=== PATIENT | female | born 1940 | race African-American/Black ===

== ENCOUNTER 2017-06-18 14:11 | Day surgery (SDC) | payer BC, OTHER ==
[2017-06-18] MEDS ORDERED: LIDOCAINE 1%/EPI 1:100000 (20 ML MULTI DOSE VIAL) ONE ×2 (14:52→17:17)
[2017-06-18] MEDS ORDERED: BACITRACIN 15 GM TUBE TOPICAL OINTMENT ONE (14:53)
--- NOTE | 2017-06-18 16:41 | HP ---
History & Physical Update - History History: No Change - Physical Physical: No Change - Assessment Assessment: No Change - Plan Plan: No Change Currently as noted:: Left scalp mass- for excision
[2017-06-18] MEDS ORDERED: POVIDONE-IODINE OINTMENT 10% - 28.4 GM TUBE ONE (17:17)
[2017-06-18] MEDS ORDERED: PROPOFOL 20 ML ONE (17:30)
[2017-06-18] MEDS ORDERED: ceFAZolin SODIUM 1 GM VIAL IVPB ONE (17:45)
[2017-06-18] MEDS ORDERED: ceFAZolin SODIUM 1 GM VIAL ONE ×2 (17:45)
[2017-06-18] MEDS ORDERED: SODIUM CHLORIDE 0.9% P/F 10 ML VIAL IJ ONE (17:45)
[2017-06-18] MEDS ORDERED: DEXAMETHASONE SOD PHOSPHATE 4 MG/1 ML VIAL ONE (17:47)
[2017-06-18] MEDS ORDERED: LIDOCAINE 1%/EPI 1:100000 (20 ML MULTI DOSE VIAL) IJ ONE ×2 (17:50)
--- NOTE | 2017-06-18 18:13 | OP ---
Operative Note - Note: Operative Date: 06/18/17 Pre-Operative Diagnosis: Right scalp mass Operation: excision of scalp mass- 3cm x 3cm Post-Operative Diagnosis: Same as Pre-op Surgeon: Ezequiel Giraldo Anesthesia: General, Local Specimens Removed: Right scalp mass. Culture Estimated Blood Loss (mls): 2 Operative Report Dictated: Yes
[2017-06-18] MEDS ORDERED: PROMETHAZINE HCL 25 MG/1 ML VIAL IVPUSH PRN (18:16)
[2017-06-18] MEDS ORDERED: ONDANSETRON 4 MG/2 ML VIAL IVPUSH PRN (18:16)
[2017-06-18] MEDS ORDERED: LACTATED RINGERS SOLUTION 1,000 ML IV SCH (18:30)
[2017-06-18 19:13] VITALS: TEMP 97.9
[2017-06-18 19:44] VITALS: BP 160/70; PULSE 85
--- NOTE | 2017-06-20 10:35 | OP ---
DATE OF OPERATION: 06/18/2017 PREOPERATIVE DIAGNOSIS: Right scalp mass. POSTOPERATIVE DIAGNOSIS: Right scalp mass. PROCEDURE: Excision of right scalp mass 3 cm x 3 cm in size. FINDINGS: A ruptured scalp mass with sebaceous-appearing content. SPECIMEN: Scalp mass and culture. ESTIMATED BLOOD LOSS: 2 mL. DRAIN: None. ANESTHESIA: LMA/local with epinephrine. REASON FOR PROCEDURE: This 76-year-old female presents with a left scalp mass. She stated that it is causing discomfort and it was increasing in size. Because of this, she was consented for an excision of her right scalp mass. The risks and benefits of the procedure were explained. These included bleeding, infection, recurrent of mass, wound dehiscence, [place], DVT, PE, vessel injury, nerve injury, hair loss are some of the complications. She understood and signed informed consent. DESCRIPTION OF PROCEDURE: The patient was placed supine on the operating room table. The area was prepped with Betadine in the usual sterile fashion. Time-out was performed. An incision over the scalp mass was made and the skin and subcutaneous tissue dissected. The mass was circumferentially dissected using Metzenbaum scissors. It was noted that the mass was ruptured with sebaceous-appearing content. In addition, there was purulent fluid noted. Cultures were taken. The mass was circumferentially dissected and completely excised in pieces because of its ruptured nature. Hemostasis was achieved using electrocautery after the specimen was removed. Irrigation was used to clean the wound. The wound was closed with multiple 2-0 silk sutures in a horizontal mattress fashion. Betadine ointment was placed over the wound. The patient tolerated the procedure well and was returned to the recovery room in stable condition. NANCY JACQUES M.D. [id number]
--- NOTE | 2017-06-22 16:36 | PATH ---
Surgical Pathology Report Patient Name: YARA LEIJA [facility]. Rec. #: [id number] /Age/Gender: 1940 (Age: 76) / F Account: [id number] Location: [facility] SURGICAL Taken: 06/18/2017 Received: 06/19/2017 Reported: 06/22/2017 Physicians: Ezequiel Giraldo M.D. Specimen(s) Received RIGHT SCALP MASS Clinical History Right scalp mass Final Diagnosis SCALP, RIGHT, MASS, EXCISION: PILAR CYST. Electronically Signed Shanelle Nuñez M.D. Gross Description Received in formalin labeled "right scalp mass," is a 1.5 x 1.4 x 0.7 cm disrupted cyst and cyst contents. Boat Motor Mechanic sections are submitted in one cassette. 06/19/201706/19/2017
== END 2017-06-18 19:52 | disposition home or self-care (01) ==
LOC: JASU-SURG 14:11
PROVIDERS: ATTEND Surgery
PROC: 0JB00ZZ Excision of Scalp Subcutaneous Tissue and Fascia, Open Approach (ICD-10-PCS; principal; 2017-06-18 14:00)
DX: L72.11 Pilar cyst (principal)
CPT/HCPCS: 87070; 87205; 88307-TC; 94760

== ENCOUNTER 2018-06-19 16:15 | Inpatient (IN) | payer BC, OTHER ==
[2018-06-19 16:23] VITALS: BMI 29.3
[2018-06-19] MEDS ORDERED: ALBUTEROL SO4 2.5/IPRATROPIUM 0.5 INH SOL 3 ML VIAL.NEB. NEB ONE ×2 (16:52→17:10)
--- NOTE | 2018-06-19 16:57 | PDOC ---
History of Present Illness - General Chief Complaint: Respiratory Stated Complaint: DIFFICULTY BREATHING,COUGH.COLD Time Seen by Provider: 06/19/18 16:29 History Source: Patient Exam Limitations: No Limitations - History of Present Illness Initial Comments: 06/19/18 16:59 77Fwith pmh of hypertension presents to the ED with 3 days of coughing associated w/ chest pain radiating to the back tried taking tylenol and robitussin with no relief. Cough is getting worse, often feels short of breath. However it is non-productive. 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 Never diagnosed with COPD or asthma. Denies fever Past History - Past Medical History Allergies/Adverse Reactions: Allergies Allergy/AdvReac Type Severity Reaction Status Date / Time No Known Drug Allergies Allergy Verified 06/19/18 16:20 Home Medications: Ambulatory Orders Amlodipine Bes/Olmesartan Med [Amlodipine-Olmesartan 10-40 mg] 1 each PO DAILY 06/19/18 Aspirin [ASA -] 81 mg PO DAILY 06/19/18 Hydrochlorothiazide [Hctz -] 25 mg PO DAILY 06/19/18 Metoprolol Succinate [Toprol Xl] 25 mg PO DAILY 06/19/18 Anemia: No Asthma: No Cancer: No Cardiac Disorders: No CVA: No COPD: No CHF: No Dementia: No Diabetes: No GI Disorders: No Disorders: No HTN: Yes Hypercholesterolemia: No Liver Disease: No Seizures: No Thyroid Disease: No - Surgical History Appendectomy: Yes - Suicide/Smoking/Psychosocial Hx Smoking History: Never smoked Hx Alcohol Use: Yes (BEER ONCE IN A WHILE) Drug/Substance Use Hx: No Substance Use Type: None Review of Systems - Review of Systems Able to Perform ROS?: Yes Is the patient limited Israeli proficient: No Constitutional: Yes: Symptoms Reported, Chills HEENTM: Yes: Nose Congestion. No: Throat Pain Respiratory: Yes: See HPI Cardiac (ROS): Yes: See HPI ABD/GI: No: Symptoms Reported : No: Symptoms Reported Musculoskeletal: No: Symptoms Reported Integumentary: No: Symptoms Reported All Other Systems: Reviewed and Negative *Physical Exam - Vital Signs Last Vital Signs Temp Pulse Resp BP Pulse Ox 99.1 F 109 H 22 H 148/84 95 06/19/18 16:20 06/19/18 16:20 06/19/18 16:20 06/19/18 16:20 06/19/18 16:20 - Physical Exam General Appearance: Yes: Nourished, Appropriately Dressed. No: Apparent Distress HEENT: positive: EOMI, GALINDO, Normal ENT Inspection Respiratory/Chest: positive: Labored Respiration, Crackles, Rales. negative: Chest Tender, Respiratory Distress Cardiovascular: positive: Regular Rhythm, S1, S2, Tachycardia Gastrointestinal/Abdominal: positive: Normal Bowel Sounds, Flat, Soft. negative : Tender Musculoskeletal: positive: Normal Inspection. negative: CVA Tenderness Integumentary: positive: Normal Color, Dry, Warm Neurologic: positive: Fully Oriented, Alert, Normal Mood/Affect, Normal Response Moderate Sedation - Procedure Monitoring Vital Signs: Procedure Monitoring Vital Signs Temperature 99.1 F 06/19/18 16:20 Pulse Rate 109 H 06/19/18 16:20 Respiratory Rate 22 H 06/19/18 16:20 Blood Pressure 148/84 06/19/18 16:20 O2 Sat by Pulse Oximetry (%) 95 06/19/18 16:20 ED Treatment Course - LABORATORY CBC & Chemistry Diagram: 06/19/18 17:00 06/19/18 17:45 Medical Decision Making - Medical Decision Making 06/19/18 18:13 pna with viral illness vs chf vs new onset asthma Elevated WBC, with cxr showing evidence of cephalization and hazy opacities. Flu negative. UA negative for UTI. Will give treatment of Duonebs and admit to observation. *DC/Admit/Observation/Transfer Diagnosis at time of Disposition: Viral pneumonia - Discharge Dispostion Decision to Admit order: Yes - Referrals - Patient Instructions - Post Discharge Activity
--- NOTE | 2018-06-19 16:58 | PDOC ---
Attending Attestation - HPI HPI: 06/19/18 17:55 The patient is a 77-year-old female with known past medical history of HTN presents to the emergency department with a cough, shortness of breath and chest pain. The patient presents with 3 days of a nonproductive cough associated with chest pain that radiates to the back reports taking Tylenol or Robitussin, without relief. 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 The patient reports associated symptoms of chills , denies fever, headache, abdominal pain, leg pain, urinary symptoms or changes in bowel habits. Denies hx of COPD or asthma. Denies getting her flu shot this year. Allergies: NKDA Social history: Non-smoker. Surgical history: Appendectomy and excision of scalp mass PCP: Lucille Sidhu MD. - Physicial Exam PE: 06/19/18 17:32 GENERAL: The patient is in no acute distress. Awake, Alert and Oriented. Answers questions appropriately. LUNGS: Bilateral crackles, no wheezing, no tachypnea. clear to auscultation bilaterally HEART:Regular rate and rhythm, normal S1 and S2 without murmur, rub or gallop. ABDOMEN: Soft, nontender, normoactive bowel sounds. No guarding, no rebound. No masses palpable. EXTREMITIES: No lower extremity edema. Normal range of motion, no edema. No clubbing or cyanosis. No erythema, or tenderness. MUSCULOSKELETAL: Back non-tender to palpation, no CVA tenderness. - Medical Decision Making 06/19/18 17:32 Documentation prepared by Rajwinder Zamudio, acting as medical diagnostic radiographer for Racquel Walters MD. <Rajwinder Zamudio - Last Filed: 06/19/18 17:55> - Resident Resident Name: Quinn Gomez - ED Attending Attestation I have performed the following: I have examined & evaluated the patient, The case was reviewed & discussed with the resident, I agree w/resident's findings & plan, Exceptions are as noted - Medical Decision Making 06/19/18 17:52 Laboratory Tests 12/27/10 06/19/18 11:00 17:00 WBC 6.0 23.0 H Hgb 10.9 9.8 L Plt Count 217.0 328 Hct 33.9 30.2 L Pt noted to have a leukocytosis CXR - increased markings, no consolidation Awaiting influenza Will plan to give Ceftriaxone and Azithromycin <Racquel Walters - Last Filed: 06/23/18 10:01>
[2018-06-19 17:07] LABS: BASO % 0.8 % (0-2.0); EOS % 2.1 % (0-4.5); HEMATOCRIT 30.2 % (32.4-45.2); HEMOGLOBIN 9.8 GM/dL (10.7-15.3); LYMPH % 7.9 % (8-40); MCH 25.1 pg (25.7-33.7); MCHC 32.3 g/dl (32.0-36.0); MEAN CELL VOLUME 77.7 fl (80-96); MEAN PLT VOLUME 9.1 fl (7.5-11.1); MONO % 7.3 % (3.8-10.2); NEUT % 81.9 % (42.8-82.8); PLATELET COUNT 328 K/MM3 (134-434); RBC 3.88 M/mm3 (3.60-5.2)
[2018-06-19 17:40] LABS: ANISOCYTOSIS 1+; PLATELET ESTIMATE ADEQUATE; TARGET CELLS 1+
[2018-06-19 18:18] LABS: URINE APPEARANCE CLEAR; URINE COLOR AMBER; URINE GLUCOSE (UA) NEGATIVE (NEGATIVE); URINE KETONE NEGATIVE (NEGATIVE); URINE LEUK ESTERASE NEGATIVE (NEGATIVE); URINE NITRITE NEGATIVE (NEGATIVE); URINE PROTEIN 1+ (NEGATIVE); URINE UROBILINOGEN 4.0 E.U/dl mg/dL (0.2-1.0)
[2018-06-19 18:19] LABS: HCG,QUALITATIVE URINE Negative
[2018-06-19 18:20] LABS: EPI CELLS RARE /HPF (FEW); URINE MUCUS FEW
[2018-06-19] MEDS ORDERED: CEFTRIAXONE 1 GM in DEXTROSE 5%-WATER - 50 ML IVPB ONE (18:28)
[2018-06-19] MEDS ORDERED: AZITHROMYCIN IVPB 500 MG in DEXTROSE 5%-WATER - 250 ML IVPB ONE (18:28)
[2018-06-19 18:30] LABS: ALBUMIN 2.3 g/dl (3.4-5.0); ALK PHOS 134 U/L (45-117); ANION GAP 10 MMOL/L (8-16); BILIRUBIN,TOTAL 0.7 mg/dL (0.2-1); BLOOD UREA NITROGEN 18 mg/dL (7-18); CALCIUM 8.2 mg/dL (8.5-10.1); CHLORIDE 100 mmol/L (98-107); CO2 28 mmol/L (21-32); GLUCOSE,RANDOM 107 mg/dL (74-106); POTASSIUM 3.8 mmol/L (3.5-5.1); SGOT/AST 34 U/L (15-37); SGPT/ALT 19 U/L (13-61); SODIUM 138 mmol/L (136-145); TOT PROT 6.7 g/dl (6.4-8.2)
[2018-06-19] MEDS ORDERED: AZITHROMYCIN IVPB 500 MG/250 ML BAG IVPB ONE (18:32)
[2018-06-19] MEDS ORDERED: CEFTRIAXONE 1 GM/50 ML BAG ONE (18:32)
[2018-06-19] MEDS ORDERED: SODIUM CHLORIDE 500 ML IV STA (20:10)
[2018-06-19] MEDS ORDERED: ACETAMINOPHEN 325 MG TABLET (FP) PO PRN (20:10)
[2018-06-19] MEDS ORDERED: ALBUTEROL SO4 0.083% IH SOL 2.5 MG/3 ML VIAL.NEB. NEB PRN (20:10)
--- NOTE | 2018-06-19 20:17 | HP ---
CHIEF COMPLAINT: cough PCP: Dr. Broussard HISTORY OF PRESENT ILLNESS: This is a 77 year old female with a history of pulmonary embolism (treated with Coumadin, now off), hypertension, who presents to the ER with three day history of cough with white sputum production. Denies fever, sore throat, headache, rhinorrhea, chest pain, sob, sob on exertion. 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 ER course was notable for: leukocytosis of 23,000 Recent Travel: no PAST MEDICAL HISTORY: Pulmonary embolism, HTN PAST SURGICAL HISTORY: Social History: Smoking:no; but is around smoke Alcohol:no Drugs: no Family History: Allergies No Known Drug Allergies Allergy (Verified 06/19/18 16:20) HOME MEDICATIONS: Home Medications Medication Instructions Recorded Amlodipine Bes/Olmesartan Med 1 each PO DAILY 06/19/18 [Amlodipine-Olmesartan 10-40 mg] Aspirin [ASA -] 81 mg PO DAILY 06/19/18 Hydrochlorothiazide [Hctz -] 25 mg PO DAILY 06/19/18 Metoprolol Succinate [Toprol Xl] 25 mg PO DAILY 06/19/18 REVIEW OF SYSTEMS CONSTITUTIONAL: Positive: chills,generalized weakness, malaise Absent: fever, diaphoresis, , loss of appetite, weight change HEENT: Absent: rhinorrhea, nasal congestion, throat pain, throat swelling, difficulty swallowing, mouth swelling, ear pain, eye pain, visual changes CARDIOVASCULAR: Positive: peripheral edema; bilateral legs Absent: chest pain, syncope, palpitations, irregular heart rate, lightheadedness , RESPIRATORY: Positive:cough, shortness of breath, Absent: dyspnea with exertion, orthopnea, wheezing, stridor, hemoptysis GASTROINTESTINAL: Absent: abdominal pain, abdominal distension, nausea, vomiting, diarrhea, constipation, melena, hematochezia GENITOURINARY: Absent: dysuria, frequency, urgency, hesitancy, hematuria, flank pain, genital pain MUSCULOSKELETAL: Absent: myalgia, arthralgia, joint swelling, back pain, neck pain SKIN: Absent: rash, itching, pallor HEMATOLOGIC/IMMUNOLOGIC: Absent: easy bleeding, easy bruising, lymphadenopathy, frequent infections ENDOCRINE: Absent: unexplained weight gain, unexplained weight loss, heat intolerance, cold intolerance NEUROLOGIC: Absent: headache, focal weakness or paresthesias, dizziness, unsteady gait, seizure, mental status changes, bladder or bowel incontinence PSYCHIATRIC: Absent: anxiety, depression, suicidal or homicidal ideation, hallucinations. PHYSICAL EXAMINATION Vital Signs - 24 hr 06/19/18 06/19/18 06/19/18 16:20 18:22 18:55 Temperature 99.1 F 99.4 F Pulse Rate 109 H Pulse Rate [ 102 H Apical] Respiratory 22 H 22 H Rate Blood Pressure 148/84 Blood Pressure 134/78 [Left Arm] O2 Sat by Pulse 95 96 Oximetry (%) GENERAL:obese, Awake, alert, and fully oriented HEAD: Normal with no signs of trauma. NECK: Normal range of motion, supple without lymphadenopathy, JVD, or masses. LUNGS:bilateral crackles throughout lung chambers . HEART: Regular rate and rhythm, normal S1 and S2 without murmur, rub or gallop. ABDOMEN: Soft, nontender, not distended, normoactive bowel sounds, no guarding, no rebound, no masses. No hepatomegaly or splenomegaly. MUSCULOSKELETAL: Normal range of motion at all joints. No bony deformities or tenderness. No CVA tenderness. UPPER EXTREMITIES: 2+ pulses, warm, well-perfused. No cyanosis. No clubbing. No peripheral edema. LOWER EXTREMITIES: 2+ pulses, warm, well-perfused. No calf tenderness. bilateral 1+edema NEUROLOGICAL: Cranial nerves II-XII intact. Normal speech. strength 5/5 throughout upper and lower muscle groups/sensation intact throughout PSYCHIATRIC: Cooperative. Good eye contact. Appropriate mood and affect. SKIN: Warm, dry, normal turgor, no rashes or lesions noted, normal capillary refill. Laboratory Results - last 24 hr 06/19/18 06/19/18 06/19/18 17:00 17:00 17:25 WBC 23.0 H RBC 3.88 Hgb 9.8 L Hct 30.2 L MCV 77.7 L MCH 25.1 L MCHC 32.3 RDW 17.0 H Plt Count 328 MPV 9.1 Absolute Neuts (auto) 18.8 H Total Counted 100 Neutrophils % 81.9 Neutrophils % (Manual) 75.0 Band Neutrophils % 2.0 Lymphocytes % 7.9 L Lymphocytes % (Manual) 12.0 Monocytes % 7.3 Monocytes % (Manual) 6 Eosinophils % 2.1 Eosinophils % (Manual) 1.0 Basophils % 0.8 Nucleated RBC % 0 Metamyelocytes 4 H Hypochromia 1+ Platelet Estimate Adequate Platelet Comment No clumping noted Polychromasia 1+ Anisocytosis 1+ Microcytosis 1+ Target Cells 1+ Sodium Cancelled Potassium Cancelled Chloride Cancelled Carbon Dioxide Cancelled Anion Gap Cancelled BUN Cancelled Creatinine Cancelled Creat Clearance w eGFR Cancelled Random Glucose Cancelled Lactic Acid Calcium Cancelled Total Bilirubin Cancelled AST Cancelled ALT Cancelled Alkaline Phosphatase Cancelled Creatine Kinase Creatine Kinase Index CK-MB (CK-2) Troponin I Cancelled Total Protein Cancelled Albumin Cancelled Urine Color Urine Appearance Urine pH Ur Specific [place] Urine Protein Urine Glucose (UA) Urine Ketones Urine Blood Urine Nitrite Urine Bilirubin Urine Urobilinogen Ur Leukocyte Esterase Urine WBC (Auto) Urine RBC (Auto) Ur Epithelial Cells Urine Mucus Urine HCG, Qual Influenza A (Rapid) Negative Influenza B (Rapid) Negative 06/19/18 06/19/18 06/19/18 17:45 17:58 18:04 WBC RBC Hgb Hct MCV MCH MCHC RDW Plt Count MPV Absolute Neuts (auto) Total Counted Neutrophils % Neutrophils % (Manual) Band Neutrophils % Lymphocytes % Lymphocytes % (Manual) Monocytes % Monocytes % (Manual) Eosinophils % Eosinophils % (Manual) Basophils % Nucleated RBC % Metamyelocytes Hypochromia Platelet Estimate Platelet Comment Polychromasia Anisocytosis Microcytosis Target Cells Sodium 138 Potassium 3.8 Chloride 100 Carbon Dioxide 28 Anion Gap 10 BUN 18 Creatinine 1.0 Creat Clearance w eGFR 53.48 Random Glucose 107 H Lactic Acid 1.6 Calcium 8.2 L Total Bilirubin 0.7 AST 34 ALT 19 Alkaline Phosphatase 134 H Creatine Kinase 158 Creatine Kinase Index 0.7 CK-MB (CK-2) 1.2 Troponin I < 0.02 Total Protein 6.7 Albumin 2.3 L Urine Color Marilyn Urine Appearance Clear Urine pH 5.0 Ur Specific [place] 1.031 Urine Protein 1+ H Urine Glucose (UA) Negative Urine Ketones Negative Urine Blood Negative Urine Nitrite Negative Urine Bilirubin 2.0 Urine Urobilinogen 4.0 e.u/dl H Ur Leukocyte Esterase Negative Urine WBC (Auto) 4 Urine RBC (Auto) 4 Ur Epithelial Cells Rare Urine Mucus Few Urine HCG, Qual Negative Influenza A (Rapid) Influenza B (Rapid) ASSESSMENT/PLAN: This is a 77 year old female with a history of pulmonary embolism, treated with coumadin, hypertension, who presents with a 3 day cough and fatigue. Leukocytosis 23,000, crackles bilateral lung chambers. CXR (increased interstitial marking b/l increased from previous). Will treat for PNA, most likely viral vs bacterial. Evaluate for congestive heart failure due to shortness of breath, crackles and leg swelling. #cough: -trend cbc, f/u blood and sputum culture -urine antigens for legionella -rsv -influenza swab -given ceftriaxone and azithromycin in ER -will continue with po levaquin; 750mg x1 then 500mg po daily -monitor QTC; currently wnl -r/o overload due to chf; stat bnp; echo #hypertension continue home meds metoprolol and htcz #question about DM? not on home meds list any DM medication ; although patient states she take DM meds -will get hemoglobin A1C #diet: low sodium #VTE; heparin sq Disposition: observation Visit type - Emergency Visit Emergency Visit: Yes Care time: The patient presented to the Emergency Department on the above date and was hospitalized for further evaluation of their emergent condition. - New Patient This patient is new to me today: Yes Date on this admission: 06/19/18 - Critical Care Critical Care patient: No
--- NOTE | 2018-06-19 21:50 | PN ---
Teaching Attending Note Name of Resident: Caryl España ATTENDING PHYSICIAN STATEMENT I saw and evaluated the patient. I reviewed the resident's note and discussed the case with the resident. I agree with the resident's findings and plan as documented. SUBJECTIVE: patient presented with fatigue and productive cough, denied any fever chills, diarrhea, chest pain or discomfort OBJECTIVE: s1 and s2 rrr lungs good air entry no wheezing rales appreciated abdomen soft non-tender ASSESSMENT AND PLAN: admit the patient to observation for CAP/atypical pneumonia start the patient on levofloxacin PO 750mg daily obtain urine antigen for legionella obtain A1c c/w home medication negative for the flu consider obtaining echocardiogram if necessary and BNP is elevated
[2018-06-19] MEDS: HEPARIN NA (PORCINE) 5,000 UNITS/ML 1ML VIAL SQ SCH (23:20)
[2018-06-20] MEDS ORDERED: ALBUTEROL SO4 0.083% IH SOL 2.5 MG/3 ML VIAL.NEB. NEB ONE (04:48)
[2018-06-20] MEDS ORDERED: ALBUTEROL SO4 2.5/IPRATROPIUM 0.5 INH SOL 3 ML VIAL.NEB. NEB ONE (04:54)
[2018-06-20] MEDS: HEPARIN NA (PORCINE) 5,000 UNITS/ML 1ML VIAL SQ SCH ×3 (05:24→21:30)
[2018-06-20] MEDS ORDERED: levoFLOXacin 750 MG TABLET PO ONE (06:00)
[2018-06-20 07:36] LABS: BASO % 0.3 % (0-2.0); EOS % 3.9 % (0-4.5); HEMATOCRIT 27.6 % (32.4-45.2); HEMOGLOBIN 8.9 GM/dL (10.7-15.3); LYMPH % 8.8 % (8-40); MCH 25.3 pg (25.7-33.7); MCHC 32.4 g/dl (32.0-36.0); MEAN PLT VOLUME 9.1 fl (7.5-11.1); MONO % 8.1 % (3.8-10.2); NEUT % 78.9 % (42.8-82.8); PLATELET COUNT 319 K/MM3 (134-434); RBC 3.54 M/mm3 (3.60-5.2); RDW 16.5 % (11.6-15.6)
[2018-06-20 07:54] LABS: INR 1.29 (0.83-1.09); PROTHROMBIN TIME (PATIENT) 15.3 SEC (9.7-13.0)
[2018-06-20 08:17] LABS: ALBUMIN 1.9 g/dl (3.4-5.0); ALK PHOS 106 U/L (45-117); ANION GAP 7 MMOL/L (8-16); BILIRUBIN,TOTAL 0.6 mg/dL (0.2-1); BLOOD UREA NITROGEN 14 mg/dL (7-18); CALCIUM 7.9 mg/dL (8.5-10.1); CHLORIDE 101 mmol/L (98-107); CO2 31 mmol/L (21-32); CREATININE 0.8 mg/dL (0.55-1.3); GLUCOSE,RANDOM 113 mg/dL (74-106); PHOSPHOROUS 3.3 mg/dL (2.5-4.9); POTASSIUM 3.2 mmol/L (3.5-5.1); SGOT/AST 23 U/L (15-37); SGPT/ALT 15 U/L (13-61); SODIUM 139 mmol/L (136-145); TOT PROT 5.8 g/dl (6.4-8.2)
[2018-06-20] MEDS ORDERED: HYDROCHLOROTHIAZIDE 25 MG TABLET (FP) PO SCH (10:00)
[2018-06-20] MEDS ORDERED: PATIENT'S OWN MEDICATION (NON-FORMULARY) (Amlodipine Bes/Olmesartan Med [Amlodipine-Olmesa PO SCH (10:00)
[2018-06-20] MEDS: ASPIRIN 81 MG CHEWABLE TABLETS PO SCH (10:03)
[2018-06-20] MEDS: amLODIPine BESYLATE 10 MG TABLET (FP) PO SCH (10:03)
[2018-06-20] MEDS: VALSARTAN 160 MG TABLET (UD) PO SCH (10:04)
[2018-06-20] MEDS: metoPROLOL SUCCINATE 25 MG TAB.SR.24H (FP) PO SCH (10:04)
[2018-06-20 10:58] LABS: ANISOCYTOSIS 1+; MACROCYTOSIS 0; PLATELET ESTIMATE NORMAL; TARGET CELLS 1+
[2018-06-20] MEDS ORDERED: POTASSIUM CHLORIDE TABS 20 MEQ TABLET.ER (FP) PO ONE (11:11)
--- NOTE | 2018-06-20 11:26 | PN ---
Progress Note (short form) - Note Progress Note: Subjective: No fever or chills. No abd pain. cough with no sputum production fro few days . 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 for years she has been having ADAMS with climbing stairs. denies CP . has no cardiac history . denies dysuria or diarrhea Objective: Vital Signs: Last Vital Signs Temp Pulse Resp BP Pulse Ox 97.7 F 96 H 20 144/86 99 06/20/18 06:00 06/20/18 06:00 06/20/18 06:00 06/20/18 06:00 06/20/18 04:27 Laboratory Results - last 24 hr 06/19/18 06/19/18 06/19/18 17:00 17:00 17:25 WBC 23.0 H RBC 3.88 Hgb 9.8 L Hct 30.2 L MCV 77.7 L MCH 25.1 L MCHC 32.3 RDW 17.0 H Plt Count 328 MPV 9.1 Absolute Neuts (auto) 18.8 H Total Counted 100 Neutrophils % 81.9 Neutrophils % (Manual) 75.0 Band Neutrophils % 2.0 Lymphocytes % 7.9 L Lymphocytes % (Manual) 12.0 Monocytes % 7.3 Monocytes % (Manual) 6 Eosinophils % 2.1 Eosinophils % (Manual) 1.0 Basophils % 0.8 Basophils % (Manual) Myelocytes % (Man) Promyelocytes % (Man) Blast Cells % (Manual) Nucleated RBC % 0 Metamyelocytes 4 H Hypochromia 1+ Platelet Estimate Adequate Platelet Comment No clumping noted Polychromasia 1+ Poikilocytosis Anisocytosis 1+ Microcytosis 1+ Macrocytosis Target Cells 1+ PT with INR INR Sodium Cancelled Potassium Cancelled Chloride Cancelled Carbon Dioxide Cancelled Anion Gap Cancelled BUN Cancelled Creatinine Cancelled Creat Clearance w eGFR Cancelled POC Glucometer Random Glucose Cancelled Hemoglobin A1c % Lactic Acid Calcium Cancelled Phosphorus Magnesium Total Bilirubin Cancelled AST Cancelled ALT Cancelled Alkaline Phosphatase Cancelled Creatine Kinase Creatine Kinase Index CK-MB (CK-2) Troponin I Cancelled Total Protein Cancelled Albumin Cancelled Urine Color Urine Appearance Urine pH Ur Specific [place] Urine Protein Urine Glucose (UA) Urine Ketones Urine Blood Urine Nitrite Urine Bilirubin Urine Urobilinogen Ur Leukocyte Esterase Urine WBC (Auto) Urine RBC (Auto) Ur Epithelial Cells Urine Mucus Urine HCG, Qual Influenza A (Rapid) Negative Influenza B (Rapid) Negative RSV Rapid 06/19/18 06/19/18 06/19/18 17:45 17:58 18:04 WBC RBC Hgb Hct MCV MCH MCHC RDW Plt Count MPV Absolute Neuts (auto) Total Counted Neutrophils % Neutrophils % (Manual) Band Neutrophils % Lymphocytes % Lymphocytes % (Manual) Monocytes % Monocytes % (Manual) Eosinophils % Eosinophils % (Manual) Basophils % Basophils % (Manual) Myelocytes % (Man) Promyelocytes % (Man) Blast Cells % (Manual) Nucleated RBC % Metamyelocytes Hypochromia Platelet Estimate Platelet Comment Polychromasia Poikilocytosis Anisocytosis Microcytosis Macrocytosis Target Cells PT with INR INR Sodium 138 Potassium 3.8 Chloride 100 Carbon Dioxide 28 Anion Gap 10 BUN 18 Creatinine 1.0 Creat Clearance w eGFR 53.48 POC Glucometer Random Glucose 107 H Hemoglobin A1c % Lactic Acid 1.6 Calcium 8.2 L Phosphorus Magnesium Total Bilirubin 0.7 AST 34 ALT 19 Alkaline Phosphatase 134 H Creatine Kinase 158 Creatine Kinase Index 0.7 CK-MB (CK-2) 1.2 Troponin I < 0.02 Total Protein 6.7 Albumin 2.3 L Urine Color Marilyn Urine Appearance Clear Urine pH 5.0 Ur Specific [place] 1.031 Urine Protein 1+ H Urine Glucose (UA) Negative Urine Ketones Negative Urine Blood Negative Urine Nitrite Negative Urine Bilirubin 2.0 Urine Urobilinogen 4.0 e.u/dl H Ur Leukocyte Esterase Negative Urine WBC (Auto) 4 Urine RBC (Auto) 4 Ur Epithelial Cells Rare Urine Mucus Few Urine HCG, Qual Negative Influenza A (Rapid) Influenza B (Rapid) RSV Rapid 06/19/18 06/19/18 06/19/18 20:30 20:30 23:17 WBC RBC Hgb Hct MCV MCH MCHC RDW Plt Count MPV Absolute Neuts (auto) Total Counted Neutrophils % Neutrophils % (Manual) Band Neutrophils % Lymphocytes % Lymphocytes % (Manual) Monocytes % Monocytes % (Manual) Eosinophils % Eosinophils % (Manual) Basophils % Basophils % (Manual) Myelocytes % (Man) Promyelocytes % (Man) Blast Cells % (Manual) Nucleated RBC % Metamyelocytes Hypochromia Platelet Estimate Platelet Comment Polychromasia Poikilocytosis Anisocytosis Microcytosis Macrocytosis Target Cells PT with INR INR Sodium Potassium Chloride Carbon Dioxide Anion Gap BUN Creatinine Creat Clearance w eGFR POC Glucometer 126 Random Glucose Hemoglobin A1c % Lactic Acid Calcium Phosphorus Magnesium Total Bilirubin AST ALT Alkaline Phosphatase Creatine Kinase Creatine Kinase Index CK-MB (CK-2) Troponin I Total Protein Albumin Urine Color Urine Appearance Urine pH Ur Specific [place] Urine Protein Urine Glucose (UA) Urine Ketones Urine Blood Urine Nitrite Urine Bilirubin Urine Urobilinogen Ur Leukocyte Esterase Urine WBC (Auto) Urine RBC (Auto) Ur Epithelial Cells Urine Mucus Urine HCG, Qual Influenza A (Rapid) Negative Influenza B (Rapid) Negative RSV Rapid Negative 06/19/18 06/20/18 06/20/18 23:45 05:41 06:00 WBC RBC Hgb Hct MCV MCH MCHC RDW Plt Count MPV Absolute Neuts (auto) Total Counted Neutrophils % Neutrophils % (Manual) Band Neutrophils % Lymphocytes % Lymphocytes % (Manual) Monocytes % Monocytes % (Manual) Eosinophils % Eosinophils % (Manual) Basophils % Basophils % (Manual) Myelocytes % (Man) Promyelocytes % (Man) Blast Cells % (Manual) Nucleated RBC % Metamyelocytes Hypochromia Platelet Estimate Platelet Comment Polychromasia Poikilocytosis Anisocytosis Microcytosis Macrocytosis Target Cells PT with INR INR Sodium Potassium Chloride Carbon Dioxide Anion Gap BUN Creatinine Creat Clearance w eGFR POC Glucometer 121 Random Glucose Hemoglobin A1c % 6.2 Lactic Acid 1.0 Calcium Phosphorus Magnesium Total Bilirubin AST ALT Alkaline Phosphatase Creatine Kinase Creatine Kinase Index CK-MB (CK-2) Troponin I Total Protein Albumin Urine Color Urine Appearance Urine pH Ur Specific [place] Urine Protein Urine Glucose (UA) Urine Ketones Urine Blood Urine Nitrite Urine Bilirubin Urine Urobilinogen Ur Leukocyte Esterase Urine WBC (Auto) Urine RBC (Auto) Ur Epithelial Cells Urine Mucus Urine HCG, Qual Influenza A (Rapid) Influenza B (Rapid) RSV Rapid 06/20/18 06/20/18 06/20/18 07:15 07:15 07:15 WBC 15.0 H RBC 3.54 L Hgb 8.9 L Hct 27.6 L MCV 78.0 L MCH 25.3 L MCHC 32.4 RDW 16.5 H Plt Count 319 MPV 9.1 Absolute Neuts (auto) 11.9 H Total Counted Neutrophils % 78.9 Neutrophils % (Manual) 76.8 Band Neutrophils % 1.0 Lymphocytes % 8.8 Lymphocytes % (Manual) 10.1 Monocytes % 8.1 Monocytes % (Manual) 6 Eosinophils % 3.9 D Eosinophils % (Manual) 4.0 D Basophils % 0.3 Basophils % (Manual) 0.0 Myelocytes % (Man) 1 Promyelocytes % (Man) 0 Blast Cells % (Manual) 0 Nucleated RBC % 0 Metamyelocytes 1 D Hypochromia 0 Platelet Estimate Normal Platelet Comment Polychromasia 0 Poikilocytosis 0 Anisocytosis 1+ Microcytosis 1+ Macrocytosis 0 Target Cells 1+ PT with INR 15.30 H INR 1.29 H Sodium 139 Potassium 3.2 L Chloride 101 Carbon Dioxide 31 Anion Gap 7 L BUN 14 Creatinine 0.8 Creat Clearance w eGFR > 60 POC Glucometer Random Glucose 113 H Hemoglobin A1c % Lactic Acid Calcium 7.9 L Phosphorus 3.3 Magnesium 2.0 Total Bilirubin 0.6 AST 23 ALT 15 Alkaline Phosphatase 106 Creatine Kinase Creatine Kinase Index CK-MB (CK-2) Troponin I Total Protein 5.8 L Albumin 1.9 L Urine Color Urine Appearance Urine pH Ur Specific [place] Urine Protein Urine Glucose (UA) Urine Ketones Urine Blood Urine Nitrite Urine Bilirubin Urine Urobilinogen Ur Leukocyte Esterase Urine WBC (Auto) Urine RBC (Auto) Ur Epithelial Cells Urine Mucus Urine HCG, Qual Influenza A (Rapid) Influenza B (Rapid) RSV Rapid Physical Exam: NAD , AAOx3. very sweet HEENT: MMM. no facial droop. round pupils reactive to light , and equal CV: RRR, no MRG , JVD Lungs: bibasilar crackles . egophony on R base . Abd: soft, NT, ND , NL BS Ext : 2+ edema . no erythema . Imaging: Cxray reviewed: possible RLL infiltrate. Assessment/Plan: very pleasant lady with h/o HTN, PE , who presneted with cough, worsening SOB and was found to have sepsis . 1- Sepsis: likely due to PNA as cxray might indicate a RLL infiltrate - check CT of chest - EKG reviewed, Qtc 453. will give IV levaquin an dmonitor QTC - EKG in am - follow blood cx, and legionella Ag - obtain ful RVP - CBC in am 2- LE edema : suspect some degree of cardiac dysfunction especially with her chronic ADAMS. - echo pending - hold fluids 3- HTN: cont current meds 4- No h/o DM and A1c 6.2. dc BGM 5- DVT PX Visit type - Emergency Visit Emergency Visit: Yes ED Registration Date: 06/20/18 Care time: The patient presented to the Emergency Department on the above date and was hospitalized for further evaluation of their emergent condition. - New Patient This patient is new to me today: Yes Date on this admission: 06/20/18 - Critical Care Critical Care patient: No
--- NOTE | 2018-06-20 12:13 | EKG ---
Test Reason : Blood Pressure : / mmHG Vent. Rate : 103 BPM Atrial Rate : 103 BPM P-R Int : 134 ms QRS Dur : 080 ms QT Int : 346 ms P-R-T Axes : 048 006 027 degrees QTc Int : 453 ms SINUS TACHYCARDIA OTHERWISE NORMAL ECG WHEN COMPARED WITH ECG OF 25-MAR-2016 08:25, NONSPECIFIC T WAVE ABNORMALITY NO LONGER EVIDENT IN LATERAL LEADS Confirmed by KIEL DELVALLE MD ([id number]) on 06/20/2018 12:13:25 PM Referred By: Confirmed By:KIEL DELVALLE MD
[2018-06-21] MEDS: HEPARIN NA (PORCINE) 5,000 UNITS/ML 1ML VIAL SQ SCH ×3 (06:10→21:29)
[2018-06-21 07:18] LABS: BASO % 0.6 % (0-2.0); EOS % 4.5 % (0-4.5); HEMATOCRIT 28.6 % (32.4-45.2); HEMOGLOBIN 8.7 GM/dL (10.7-15.3); LYMPH % 10.6 % (8-40); MCH 24.1 pg (25.7-33.7); MCHC 30.5 g/dl (32.0-36.0); MEAN PLT VOLUME 8.7 fl (7.5-11.1); MONO % 8.5 % (3.8-10.2); NEUT % 75.8 % (42.8-82.8); PLATELET COUNT 310 K/MM3 (134-434); RBC 3.62 M/mm3 (3.60-5.2); RDW 16.6 % (11.6-15.6); WHITE BLOOD COUNT 13.1 K/mm3 (4.0-10.0)
--- NOTE | 2018-06-21 07:19 | PN ---
Physical Exam: SUBJECTIVE: Patient seen and examined at bedside. No acute events overnight. Denies trujillo/d, n/v, chest pain, sob, abd pain, urinary/bowel symptoms. Admits to cough. OBJECTIVE: Vital Signs Temperature 98.7 F 06/21/18 05:30 Pulse Rate 82 06/21/18 05:30 Respiratory Rate 26 H 06/21/18 05:30 Blood Pressure 137/76 06/21/18 05:30 O2 Sat by Pulse Oximetry (%) 97 06/21/18 04:00 GENERAL: AAOx3. NAD. HEENT: AT/NC. EOMI. GALINDO. Moist mucus membranes. NECK: Trachea midline, full range of motion, supple. LUNGS: Symmetric chest rise. B/l crackles. HEART: RRR. Normal S1, S2. No murmurs noted. ABDOMEN: Soft, NT/ND. +Bs in all 4Qs. EXTREMITIES: 2+ pulses, warm, well-perfused, no edema. NEUROLOGICAL: Cranial nerves II through XII grossly intact. Normal speech, gait not observed. PSYCH: Normal mood, normal affect. SKIN: Warm, dry, normal turgor, no rashes or lesions noted CBCD WBC 15.0 K/mm3 (4.0-10.0) H 06/20/18 07:15 RBC 3.54 M/mm3 (3.60-5.2) L 06/20/18 07:15 Hgb 8.9 GM/dL (10.7-15.3) L 06/20/18 07:15 Hct 27.6 % (32.4-45.2) L 06/20/18 07:15 MCV 78.0 fl (80-96) L 06/20/18 07:15 MCHC 32.4 g/dl (32.0-36.0) 06/20/18 07:15 RDW 16.5 % (11.6-15.6) H 06/20/18 07:15 Plt Count 319 K/MM3 (134-434) 06/20/18 07:15 MPV 9.1 fl (7.5-11.1) 06/20/18 07:15 CMP Sodium 139 mmol/L (136-145) 06/20/18 07:15 Potassium 3.2 mmol/L (3.5-5.1) L 06/20/18 07:15 Chloride 101 mmol/L (98-107) 06/20/18 07:15 Carbon Dioxide 31 mmol/L (21-32) 06/20/18 07:15 Anion Gap 7 MMOL/L (8-16) L 06/20/18 07:15 BUN 14 mg/dL (7-18) 06/20/18 07:15 Creatinine 0.8 mg/dL (0.55-1.3) 06/20/18 07:15 Creat Clearance w eGFR > 60 (>60) 06/20/18 07:15 Calcium 7.9 mg/dL (8.5-10.1) L 06/20/18 07:15 Total Bilirubin 0.6 mg/dL (0.2-1) 06/20/18 07:15 AST 23 U/L (15-37) 06/20/18 07:15 ALT 15 U/L (13-61) 06/20/18 07:15 Alkaline Phosphatase 106 U/L (45-117) 06/20/18 07:15 Total Protein 5.8 g/dl (6.4-8.2) L 06/20/18 07:15 Albumin 1.9 g/dl (3.4-5.0) L 06/20/18 07:15 Active Medications Acetaminophen (Tylenol -) 650 mg PO Q4H PRN PRN Reason: PAIN Last Admin: 06/20/18 20:28 Dose: 650 mg Amlodipine Besylate (Norvasc -) 10 mg PO DAILY [facility] Last Admin: 06/20/18 10:03 Dose: 10 mg Aspirin (Asa -) 81 mg PO DAILY [facility] Last Admin: 06/20/18 10:03 Dose: 81 mg Heparin Sodium (Porcine) (Heparin -) 5,000 unit SQ TID [facility] Last Admin: 06/21/18 06:10 Dose: 5,000 unit Hydrochlorothiazide (Hctz -) 25 mg PO DAILY [facility] Levofloxacin (Levaquin 500 Mg Premixed Ivpb -) 500 mg in 100 mls @ 100 mls/hr IVPB DAILY ONE; Protocol Stop: 06/21/18 10:59 Metoprolol Succinate (Toprol Xl -) 25 mg PO DAILY [facility] Last Admin: 06/20/18 10:04 Dose: 25 mg Valsartan (Diovan -) 320 mg PO DAILY [facility] Last Admin: 06/20/18 10:04 Dose: 320 mg IMAGING: * Echo: EF 60-65%. Impaired relaxation. Trace MR, mild to moderate TR, PA systolic pressure at least 41 mmHg. Mild pulmonic vascular resistance. No pericardial effusion. ASSESSMENT/PLAN: 77F with a history of pulmonary embolism, treated with coumadin, hypertension, who presents with a 3 day cough and fatigue. Leukocytosis 23,000, crackles bilateral lung chambesr. CXR (increased interstitial marking b/l increased from previous). Will treat for PNA, most likely viral vs bacterial. Evaluate for congestive heart failure due to shortness of breath, crackles and leg swelling. #Shortness of breath likely 2/2 RLL PNA, r/o CHF -Pt presented with tachypnea, elevated WBC count also has increased density over the spine. Pt was empirically treated for pna. Will cont abx therapy. -Additionally, pt presented with sob, b/l crackles and leg swelling. There is a possibility for CHF, will r/o with echo; hold fluids. -Levaquin 500 mg IVPB; Pt's latest EKG showed QTc of 453, will cont to monitor QTc -Legionella/Strep pneumo neg -RSV pending -BCx pending -influenza swab #HTN Cont home meds: -Metoprolol 25 PO QD -HCTZ 25 PO QD -Valsartan 320 PO QD -Amlodipine 10 PO QD #Prophylaxis DVT: Heparin 5000U SQ TID #FEN -no IVf needed -recheck lytes in AM -Regular diet dispo -cont to monitor on med-surg Visit type - Emergency Visit Emergency Visit: Yes ED Registration Date: 06/20/18 Care time: The patient presented to the Emergency Department on the above date and was hospitalized for further evaluation of their emergent condition. - New Patient This patient is new to me today: Yes Date on this admission: 06/21/18 - Critical Care Critical Care patient: No
[2018-06-21 07:30] LABS: ANION GAP 6 MMOL/L (8-16); BLOOD UREA NITROGEN 11 mg/dL (7-18); CALCIUM 7.8 mg/dL (8.5-10.1); CHLORIDE 107 mmol/L (98-107); CO2 28 mmol/L (21-32); CREATININE 0.8 mg/dL (0.55-1.3); GLUCOSE,RANDOM 96 mg/dL (74-106); MAGNESIUM 2.1 mg/dL (1.8-2.4); PHOSPHOROUS 3.2 mg/dL (2.5-4.9); SODIUM 142 mmol/L (136-145)
[2018-06-21 09:32] LABS: N-TERMINAL BNP 74.4 pg/ml (5-450)
[2018-06-21] MEDS: amLODIPine BESYLATE 10 MG TABLET (FP) PO SCH (09:56)
[2018-06-21] MEDS: VALSARTAN 160 MG TABLET (UD) PO SCH (09:56)
[2018-06-21] MEDS: HYDROCHLOROTHIAZIDE 25 MG TABLET (FP) PO SCH (09:57)
[2018-06-21] MEDS: metoPROLOL SUCCINATE 25 MG TAB.SR.24H (FP) PO SCH (09:57)
[2018-06-21] MEDS: ASPIRIN 81 MG CHEWABLE TABLETS PO SCH (09:57)
[2018-06-21 12:21] LABS: ANISOCYTOSIS 1+; MACROCYTOSIS 0; PLATELET ESTIMATE NORMAL; TARGET CELLS 1+
--- NOTE | 2018-06-21 13:34 | PN ---
Teaching Attending Note Name of Resident: Elise Rausch ATTENDING PHYSICIAN STATEMENT I saw and evaluated the patient. I reviewed the resident's note and discussed the case with the resident. I agree with the resident's findings and plan as documented. SUBJECTIVE: had a fever last night . no cp or SOB . no diarrhea OBJECTIVE: NAD, AAOx3. CV: RRR, no MRG, JVD Lungs: bibasilar crackles . Ext: 1+ edema. no erythema . Assessment/Plan: very pleasant lady with h/o HTN, PE , who presented with cough, worsening SOB and was found to have sepsis . 1- Sepsis due to PNA. CT scan with bibasilar infiltrates. - follow final CT read - cont levaquin - follow blood cx . neg legionella - follow EKG - follow RVP 2- LE edema: suspect some degree of cardiac dysfunction especially with her chronic ADAMS, and fluids in fissure on CT scan - follow echo report 3- HTN: cont toprol , valsartan, and norvasc 4- DVT PX possible dc tomorrow
--- NOTE | 2018-06-21 14:59 | ECHO ---
Name: YARA LEIJA Exam:Adult Echocardiogram Study Date: 06/21/2018 11:33 AM Age: 77 yrs Reason For Study: R/O CHF Height: 66 in Weight: 182 lb BSA: 1.9 m2 MMode/2D Measurements & Calculations IVSd: 0.94 cm Ao root diam: 2.5 cm LVIDd: 4.6 cm LA dimension: 2.8 cm LVIDs: 2.9 cm LVPWd: 0.86 cm EDV(Teich): 97.7 ml TAPSE: 2.1 cm ESV(Teich): 32.9 ml Doppler Measurements & Calculations MV E max catalino: 70.1 cm/sec TR max catalino: 261.2 cm/sec MV A max catalino: 102.7 cm/sec TR max P.5 mmHg MV E/A: 0.68 MV dec time: 0.17 sec PI end-d catalino: 136.2 cm/sec Med Peak E' Catalino: 6.6 cm/sec Med E/e': 10.6 Lat Peak E' Catalino: 11.3 cm/sec Lat E/e': 6.2 Procedure A complete two-dimensional transthoracic echocardiogram was performed (2D, M-mode, Doppler and color flow Doppler). Left Ventricle The left ventricle is normal in size. Left ventricular systolic function is normal. Ejection Fraction = 60- 65%. TDI reveals impaired relaxation with normal filling pressure (E/E' 10). No regional wall motion abnormalities noted. Right Ventricle The right ventricle is normal size. The right ventricular systolic function is normal. RV systolic TD I is 13 cm/s. Atria The left atrial size is normal. Right atrial size is normal. Mitral Valve The mitral valve is normal in structure and function. There is trace mitral regurgitation. Tricuspid Valve The tricuspid valve is normal in structure and function. There is mild to moderate tricuspid regurgit ation. Pulmonary artery systolic pressure is at least 41 mmHg assuming RA pressure of 3 mmHg (normal IVC and >50% collapse). Aortic Valve The aortic valve is normal in structure and function. No aortic regurgitation is present. Pulmonic Valve The pulmonic valve is not well visualized. Mild pulmonic valvular regurgitation. Great Vessels The aortic root is normal size. Pericardium/Pleura There is no pericardial effusion. Interpretation Summary The left ventricle is normal in size. Left ventricular systolic function is normal. No regional wall motion abnormalities noted. Ejection Fraction = 60-65%. TDI reveals impaired relaxation with normal filling pressure (E/E' 10) The right ventricular systolic function is normal. The left atrial size is normal. Right atrial size is normal. There is trace mitral regurgitation. There is mild to moderate tricuspid regurgitation. Pulmonary artery systolic pressure is at least 41 mmHg assuming RA pressure of 3 mmHg (normal IVC and >50% collapse) Mild pulmonic valvular regurgitation. There is no pericardial effusion. Previous study is not available for comparison Timmy Brady MD 06/21/2018 02:59 PM
--- NOTE | 2018-06-21 15:39 | EKG ---
Test Reason : Blood Pressure : / mmHG Vent. Rate : 082 BPM Atrial Rate : 082 BPM P-R Int : 138 ms QRS Dur : 080 ms QT Int : 382 ms P-R-T Axes : 061 024 032 degrees QTc Int : 446 ms NORMAL SINUS RHYTHM NORMAL ECG WHEN COMPARED WITH ECG OF 19-JUN-2018 16:47, NO SIGNIFICANT CHANGE WAS FOUND Confirmed by LOUISE ALVARADO MD ([id number]) on 06/21/2018 3:38:55 PM [facility] By[facility] Confirmed By:LOUISE ALVARADO MD
[2018-06-22] MEDS: HEPARIN NA (PORCINE) 5,000 UNITS/ML 1ML VIAL SQ SCH ×2 (06:04→14:15)
[2018-06-22 06:05] LABS: HEMOGLOBIN 9.6 GM/dL (10.7-15.3); MCH 23.6 pg (25.7-33.7); MCHC 29.8 g/dl (32.0-36.0); MEAN CELL VOLUME 79.1 fl (80-96); MEAN PLT VOLUME 8.8 fl (7.5-11.1); PLATELET COUNT 362 K/MM3 (134-434); RBC 4.05 M/mm3 (3.60-5.2); RDW 16.6 % (11.6-15.6); WHITE BLOOD COUNT 12.9 K/mm3 (4.0-10.0)
[2018-06-22 06:41] LABS: ANION GAP 6 MMOL/L (8-16); BLOOD UREA NITROGEN 11 mg/dL (7-18); CALCIUM 8.2 mg/dL (8.5-10.1); CHLORIDE 104 mmol/L (98-107); CO2 31 mmol/L (21-32); CREATININE 0.9 mg/dL (0.55-1.3); GLUCOSE,RANDOM 98 mg/dL (74-106); POTASSIUM 3.8 mmol/L (3.5-5.1); SODIUM 140 mmol/L (136-145)
--- NOTE | 2018-06-22 08:50 | PN ---
Teaching Attending Note Name of Resident: Elise Rausch ATTENDING PHYSICIAN STATEMENT I saw and evaluated the patient. I reviewed the resident's note and discussed the case with the resident. I agree with the resident's findings and plan as documented. SUBJECTIVE: no fever or chills . No SOB. has no difficulty breathins when she ambulates. has been walking normally withno trouble OBJECTIVE: NAD, AAOx3. CV: RRR, no MRG, JVD Lungs: bibasilar crackles . Ext: 1+ edema. no erythema . Assessment/Plan: very pleasant lady with h/o HTN, PE , who presented with cough, worsening SOB and was found to have sepsis . 1- Sepsis due to b/l lower lobe PNA final CT report is not back yet . - cont levaquin day 3/5 . switch to oral . no mor efever - follow blood cx neg to date 48 hr - ekG with Qtc of 446 - RVP pending - need repeat CT as out pt in 6-8 weeks to evaluate bibasilar changes 2- pulmonary HTN: need f/u with card . has mild TR. 3- HTN: cont toprol , valsartan, and norvasc dispo : dc home . f/u with PCP, and card
[2018-06-22] MEDS: ASPIRIN 81 MG CHEWABLE TABLETS PO SCH (10:14)
[2018-06-22] MEDS: metoPROLOL SUCCINATE 25 MG TAB.SR.24H (FP) PO SCH (10:14)
[2018-06-22] MEDS: amLODIPine BESYLATE 10 MG TABLET (FP) PO SCH (10:14)
[2018-06-22] MEDS: VALSARTAN 160 MG TABLET (UD) PO SCH (10:14)
[2018-06-22] MEDS: HYDROCHLOROTHIAZIDE 25 MG TABLET (FP) PO SCH (10:14)
[2018-06-22 11:15] VITALS: BP 118/72; PULSE 93; TEMP 98.2
--- NOTE | 2018-06-22 11:58 | DS ---
Physical Exam: SUBJECTIVE: Patient seen and examined at bedside. No acute events overnight. OBJECTIVE: Vital Signs Period Temp Pulse Resp BP Sys/Brown Pulse Ox Last 24 Hr 98.2 F-98.6 F 83-93 19-20 118-143/66-80 94-97 PHYSICAL EXAM GENERAL: AAOx3. NAD. HEENT: AT/NC. EOMI. GALINDO. Moist mucus membranes. NECK: Trachea midline, full range of motion, supple. LUNGS: Symmetric chest rise. B/l crackles. HEART: RRR. Normal S1, S2. No murmurs noted. ABDOMEN: Soft, NT/ND. +Bs in all 4Qs. EXTREMITIES: 2+ pulses, warm, well-perfused, no edema. NEUROLOGICAL: Cranial nerves II through XII grossly intact. Normal speech, gait not observed. PSYCH: Normal mood, normal affect. SKIN: Warm, dry, normal turgor, no rashes or lesions noted LABS Laboratory Results - last 24 hr 06/21/18 06/22/18 06/22/18 06:15 05:30 05:30 WBC 12.9 H RBC 4.05 Hgb 9.6 L Hct 32.0 L MCV 79.1 L MCH 23.6 L MCHC 29.8 L RDW 16.6 H Plt Count 362 MPV 8.8 Neutrophils % (Manual) 65.3 Band Neutrophils % 7.1 Lymphocytes % (Manual) 12.3 D Monocytes % (Manual) 7 Eosinophils % (Manual) 4.1 Basophils % (Manual) 0.0 Myelocytes % (Man) 3 H D Promyelocytes % (Man) 0 Blast Cells % (Manual) 0 Metamyelocytes 1 Hypochromia 1+ Platelet Estimate Normal Polychromasia 0 Poikilocytosis 0 Anisocytosis 1+ Microcytosis 1+ Macrocytosis 0 Target Cells 1+ Sodium 140 Potassium 3.8 Chloride 104 Carbon Dioxide 31 Anion Gap 6 L BUN 11 Creatinine 0.9 Creat Clearance w eGFR > 60 Random Glucose 98 Calcium 8.2 L HOSPITAL COURSE: Date of Admission:06/20/18 IMAGING: * Echo: EF 60-65%. Impaired relaxation. Trace MR, mild to moderate TR, PA systolic pressure at least 41 mmHg. Mild pulmonic vascular resistance. No pericardial effusion. 77F w/ pmhx of PE (treated with Coumadin), HTN, presents with a 3 day hx of cough and fatigue admitted for community-acquired pna. Pt was given Levaquin throughout her hospital stay. An echo was ordered that showed impaired diastolic cardiac dysfunction as well as mild pulmonic vascular resistance. Pt' s symptoms improved during the admission. She was discharged home and advised to take Levaquin for treatment of her pna as well as to continue with her home meds as directed. Pt was also advised to follow up with her PCP within 1 week as well as a shrink pit operator for further evaluation of her abnormal Echo findings within 1 week. Date of Discharge: 06/22/18 Minutes to complete discharge: 35 Discharge Summary Reason For Visit: VIRAL PNEAUMONIA Current Active Problems Community acquired pneumonia (Acute) Pulmonary hypertension (Chronic) Condition: Improved - Instructions Diet, Activity, Other Instructions: You were seen in the hospital for shortness of breath and found to have pneumonia. In the hospital, you were given antibiotics for pneumonia. Additionally, an echocardiogram (ultrasound of the heart) was done that showed a stiff heart . Your shortness of breath improved. You are being discharged home. MEDICAL RECOMMENDATIONS Please continue taking your home meds as prescribed. Take Levaquin for 2 more days starting tomorrow morning. CONSULT RECOMMENDATIONS Please follow up with your primary care physician, Dr. Melendrez within [address] Carbajal, for evaluation of your heart (elevated pulmonary pressure, and diastolic dysfunction) You need a CT scan of your chest in 6 weeks to evaluate the lung infiltrates. pending: flu swab, to be followed by your doctor If you experience worsening shortness of breath, difficulty breathing, persistent or worsening chest pain, difficulty walking or other associated symptoms, please proceed to your nearest emergency room immediately. Referrals: Lucille Melendrez MD [Staff Physician] - 1 Week Layo Carbajal MD [Staff Physician] - 2 Weeks Disposition: HOME - Home Medications Comprehensive Discharge Medication List: Ambulatory Orders Amlodipine Bes/Olmesartan Med [Amlodipine-Olmesartan 10-40 mg] 1 each PO DAILY 06/19/18 Aspirin [ASA -] 81 mg PO DAILY 06/19/18 Hydrochlorothiazide [Hctz -] 25 mg PO DAILY 06/19/18 Metoprolol Succinate [Toprol Xl] 25 mg PO DAILY 06/19/18 Ergocalciferol [Vitamin D2] 50,000 unit PO WEEKLY 06/21/18 Levofloxacin [Levaquin] 500 mg PO Q24H #2 tablet 06/22/18 Naproxen Sodium 1 tab PO BID 06/22/18 This patient is new to me today: No Emergency Visit: Yes ED Registration Date: 06/20/18 Care time: The patient presented to the Emergency Department on the above date and was hospitalized for further evaluation of their emergent condition. Critical Care patient: No - Discharge Referral Referred to [facility] Med [facility] No
--- NOTE | 2018-06-22 16:25 | EKG ---
Test Reason : Blood Pressure : / mmHG Vent. Rate : 085 BPM Atrial Rate : 085 BPM P-R Int : 144 ms QRS Dur : 082 ms QT Int : 384 ms P-R-T Axes : 062 031 033 degrees QTc Int : 456 ms NORMAL SINUS RHYTHM NORMAL ECG Confirmed by MD MANDA, ROBERT ([id number]) on 06/22/2018 4:24:35 PM Referred By: BHARGAVI Mack DR Confirmed By:ROBERT HOLMAN MD
[2018-06-23 04:17] LABS: SERUM IRON SATURATION 10 % (15-55); TOTAL IRON BINDING CAPACITY 278 ug/dL (250-450); UIBC 250 ug/dL (118-369)
== END 2018-06-22 15:23 | disposition home or self-care (01) | DRG 871 ==
LOC: JER 16:15 → JERBED 19:42 → UNDOADMOB 19:56 → JERBED 19:56 → J6S 22:12 → OBSVTOIN 06-20 08:03
PROVIDERS: ADMIT Internal Medicine; ATTEND Internal Medicine
DX: A41.9 Sepsis, unspecified organism (principal); J18.9 Pneumonia, unspecified organism; I10 Essential (primary) hypertension; Z86.711 Personal history of pulmonary embolism; I27.20 Pulmonary hypertension, unspecified
CPT/HCPCS: 36415; 71046-TC-FY; 71250-TC; 80048; 80053; 81003; 81015; 82550; 82553; 82728; 82962; 83036; 83540; 83550; 83605; 83735; 83880; 84100; 84466; 84484; 84703; 85025; 85027; 85610; 87040; 87086; 87633; 87804; 87807; 87899; 93005; 93010; 93306-TC; 94640; 99283-25; G0378; J1644

== ENCOUNTER 2021-08-21 17:16 | Emergency (ER) | payer OTHER, BC ==
[2021-08-21 17:37] VITALS: BP 169/90; PULSE 82; TEMP 97.8; BMI 26.6
[2021-08-21] MEDS ORDERED: ACETAMINOPHEN 500 MG TABLET (FP) PO ONE (18:13)
[2021-08-21] MEDS ORDERED: ACETAMINOPHEN 500 MG TABLET (FP) ONE (19:18)
== END 2021-08-21 20:26 | disposition home or self-care (01) ==
LOC: JERFT 17:16
DX: M54.50 Low back pain, unspecified (principal); W01.0XXA Fall on same level from slipping, tripping and stumbling without subsequent striking against object, initial encounter
CPT/HCPCS: 70450-TC; 71046-TC-FY; 72125-TC; 72131-TC; 73070-TC-LT-FY; 73070-TC-RT-FY; 99285-25

== ENCOUNTER 2021-10-24 09:20 | Emergency (ER) | payer BC, OTHER ==
[2021-10-24 09:34] VITALS: BMI 28.2
[2021-10-24 10:40] LABS: CALCIUM 9.3 mg/dL (8.5-10.1)
[2021-10-24 10:41] LABS: ALBUMIN 3.3 g/dl (3.4-5.0); BLOOD UREA NITROGEN 18.1 mg/dL (7-18)
[2021-10-24 10:44] LABS: CREATININE 0.9 mg/dL (0.55-1.3)
[2021-10-24 10:45] LABS: BILIRUBIN,TOTAL 0.8 mg/dL (0.2-1); TOT PROT 7.9 g/dl (6.4-8.2)
[2021-10-24] MEDS ORDERED: amLODIPine BESYLATE 5 MG TABLET (FP) PO ONE (11:32)
[2021-10-24] MEDS ORDERED: amLODIPine BESYLATE 5 MG TABLET (FP) ONE (11:39)
[2021-10-24 13:58] LABS: EOS % 6.4 % (0-4.5); HEMATOCRIT 40.7 % (32.4-45.2); HEMOGLOBIN 12.8 GM/dL (10.7-15.3); LYMPH % 29.9 % (8-40); MCH 26.4 pg (25.7-33.7); MCHC 31.5 g/dl (32.0-36.0); MEAN CELL VOLUME 83.8 fl (80-96); MEAN PLT VOLUME 9.2 fl (7.5-11.1); MONO % 9.9 % (3.8-10.2); NEUT % 52.8 % (42.8-82.8); PLATELET COUNT 300 10^3/uL (134-434); RBC 4.85 M/mm3 (3.60-5.2); RDW 17.5 % (11.6-15.6); WHITE BLOOD COUNT 5.7 K/mm3 (4.0-10.0)
[2021-10-24 13:59] LABS: INR 1.06 (0.83-1.09); PROTHROMBIN TIME (PATIENT) 12.2 SEC (9.7-13.0)
[2021-10-24 14:02] LABS: ACTIVATED PTT 27.4 SECONDS (25.2-36.5)
[2021-10-24] MEDS ORDERED: metoPROLOL SUCCINATE 25 MG TAB.SR.24H (FP) PO ONE (16:24)
[2021-10-24] MEDS ORDERED: metoPROLOL SUCCINATE 25 MG TAB.SR.24H (FP) ONE (16:26)
[2021-10-24 17:10] VITALS: BP 133/107; PULSE 77; TEMP 98.4
== END 2021-10-24 17:10 | disposition home or self-care (01) ==
LOC: JER 09:20
DX: I10 Essential (primary) hypertension (principal)
CPT/HCPCS: 36415; 71045-TC-FY; 71275-TC; 74175-TC; 80053; 84484; 85025; 85610; 85730; 86850; 86900; 86901; 93005; 93010; 99285-25; Q9967

== ENCOUNTER 2021-11-06 17:29 | Emergency (ER) | payer OTHER, BC ==
[2021-11-06 17:38] VITALS: TEMP 97.8; BMI 27.4
[2021-11-06 19:13] LABS: BASO % 0.9 % (0-2.0); EOS % 6.5 % (0-4.5); HEMATOCRIT 37.1 % (32.4-45.2); HEMOGLOBIN 11.8 GM/dL (10.7-15.3); LYMPH % 22.6 % (8-40); MCH 26.8 pg (25.7-33.7); MCHC 31.9 g/dl (32.0-36.0); MEAN CELL VOLUME 84.1 fl (80-96); MEAN PLT VOLUME 8.5 fl (7.5-11.1); MONO % 10.1 % (3.8-10.2); NEUT % 59.9 % (42.8-82.8); PLATELET COUNT 257 10^3/uL (134-434); RBC 4.41 M/mm3 (3.60-5.2); RDW 17.2 % (11.6-15.6); WHITE BLOOD COUNT 6.1 K/mm3 (4.0-10.0)
[2021-11-06 19:36] LABS: CALCIUM 8.9 mg/dL (8.5-10.1)
[2021-11-06 19:37] LABS: ALBUMIN 3.3 g/dl (3.4-5.0); BLOOD UREA NITROGEN 16.1 mg/dL (7-18)
[2021-11-06 19:40] LABS: CREATININE 0.9 mg/dL (0.55-1.3)
[2021-11-06 19:41] LABS: BILIRUBIN,TOTAL 0.9 mg/dL (0.2-1)
[2021-11-06 21:52] VITALS: BP 169/88; PULSE 72
== END 2021-11-06 22:18 | disposition home or self-care (01) ==
LOC: JER 17:29
DX: R03.0 Elevated blood-pressure reading, without diagnosis of hypertension (principal)
CPT/HCPCS: 36415; 71045-TC-FY; 80053; 84484; 85025; 93005; 93010; 99285-25

== ENCOUNTER 2023-07-30 20:00 | Emergency (ER) | payer OTHER, BC ==
[2023-07-30 20:42] VITALS: RESP 18; TEMP 97.8; BMI 26.6
[2023-07-30] MEDS ORDERED: SODIUM CHLORIDE 0.9% 500 ML INFUS.BAG IV ONE (20:49)
[2023-07-30] MEDS ORDERED: ACETAMINOPHEN 1000 MG/100 ML BAG IVPB ONE (20:49)
[2023-07-30] MEDS ORDERED: ACETAMINOPHEN INJECTION 100 ML IVPB ONE (22:12)
[2023-07-30 22:17] LABS: BASO % 0.8 % (0-2.0); EOS % 6.3 % (0-4.5); HEMOGLOBIN 11.2 GM/dL (10.7-15.3); LYMPH % 18.8 % (8-40); MCH 26.9 pg (25.7-33.7); MCHC 31.9 g/dl (32.0-36.0); MEAN CELL VOLUME 84.3 fl (80-96); MEAN PLT VOLUME 8.6 fl (7.5-11.1); MONO % 11.8 % (3.8-10.2); NEUT % 62.3 % (42.8-82.8); PLATELET COUNT 242 10^3/uL (134-434); RBC 4.15 M/mm3 (3.60-5.2); RDW 16.3 % (11.6-15.6)
[2023-07-30 23:00] LABS: POTASSIUM 3.2 mmol/L (3.5-5.1)
[2023-07-30 23:02] LABS: ALBUMIN 2.8 g/dl (3.4-5.0); CALCIUM 8.6 mg/dL (8.5-10.1); MAGNESIUM 1.8 mg/dL (1.8-2.4)
[2023-07-30 23:06] LABS: CREATININE 0.6 mg/dL (0.55-1.3)
[2023-07-30 23:07] LABS: BILIRUBIN,TOTAL 0.6 mg/dL (0.2-1); TOT PROT 7.2 g/dl (6.4-8.2)
[2023-07-31 00:07] VITALS: BP 180/91; PULSE 66
== END 2023-07-31 07:00 | disposition home or self-care (01) ==
LOC: JER 20:00
PROC: 3E033NZ Introduction of Analgesics, Hypnotics, Sedatives into Peripheral Vein, Percutaneous Approach (ICD-10-PCS; principal; 2023-07-30)
DX: R51.9 Headache, unspecified (principal); R11.0 Nausea; Z20.822 Contact with and (suspected) exposure to COVID-19
CPT/HCPCS: 0241U-QW; 36415; 70450-TC; 71046-TC-FY; 80053; 83735; 84484; 85025; 93005; 93010; 99285-25

== ENCOUNTER 2023-10-23 17:57 | Inpatient (IN) | payer OTHER, BC ==
[2023-10-23 18:55] LABS: BASO % 0.6 % (0-2.0); EOS % 3.8 % (0-4.5); HEMATOCRIT 39.5 % (32.4-45.2); HEMOGLOBIN 12.6 GM/dL (10.7-15.3); LYMPH % 13.5 % (8-40); MCH 26.8 pg (25.7-33.7); MCHC 31.8 g/dl (32.0-36.0); MEAN CELL VOLUME 84.3 fl (80-96); MONO % 10.8 % (3.8-10.2); NEUT % 71.3 % (42.8-82.8); PLATELET COUNT 318 10^3/uL (134-434); RBC 4.69 M/mm3 (3.60-5.2); WHITE BLOOD COUNT 8.4 K/mm3 (4.0-10.0)
[2023-10-23 19:19] LABS: POTASSIUM 5.8 mmol/L (3.5-5.1)
[2023-10-23 19:21] LABS: ALBUMIN 3.2 g/dl (3.4-5.0); MAGNESIUM 2.2 mg/dL (1.8-2.4)
[2023-10-23 19:22] LABS: CALCIUM 9.3 mg/dL (8.5-10.1)
[2023-10-23 19:23] LABS: BLOOD UREA NITROGEN 27.1 mg/dL (7-18)
[2023-10-23 19:24] LABS: CREATININE 1.2 mg/dL (0.55-1.3)
[2023-10-23 19:26] LABS: TOT PROT 8.4 g/dl (6.4-8.2)
[2023-10-23 19:27] LABS: BILIRUBIN,TOTAL 0.5 mg/dL (0.2-1)
[2023-10-23] MEDS: LACTATED RINGERS SOLUTION 1,000 ML/1,000 ML INFUS.BAG IV SCH (21:20)
[2023-10-23 21:26] LABS: EPI CELLS 33 /uL (0-25.1); HYALINE CASTS 4 /uL (0-3.1); PH,URINE 5.5 (5.0-8.0); URINE APPEARANCE CLOUDY; URINE BACTERIA 210 /uL (0-1359); URINE BILIRUBIN NEGATIVE (NEGATIVE); URINE COLOR YELLOW; URINE GLUCOSE (UA) NEGATIVE (NEGATIVE); URINE KETONE TRACE (NEGATIVE); URINE LEUK ESTERASE TRACE (NEGATIVE); URINE NITRITE NEGATIVE (NEGATIVE); URINE PROTEIN TRACE (NEGATIVE); URINE RBC 12 /uL (0-23.9); URINE WBC 32 /uL (0-25.8)
[2023-10-23 22:26] LABS: POTASSIUM 4.3 mmol/L (3.5-5.1)
[2023-10-23 22:29] LABS: BLOOD UREA NITROGEN 28.9 mg/dL (7-18); CALCIUM 9.1 mg/dL (8.5-10.1)
[2023-10-23 22:32] LABS: CREATININE 1.2 mg/dL (0.55-1.3)
[2023-10-24] MEDS: amLODIPine BESYLATE 5 MG TABLET (FP) PO ONE (01:50)
[2023-10-24 02:15] VITALS: RESP 18; BMI 32.9
[2023-10-24] MEDS: HEPARIN NA (PORCINE) 5,000 UNITS/ML 1ML VIAL SQ SCH (06:17)
[2023-10-24 08:54] LABS: BASO % 0.6 % (0-2.0); EOS % 5.3 % (0-4.5); HEMATOCRIT 33.1 % (32.4-45.2); HEMOGLOBIN 10.4 GM/dL (10.7-15.3); LYMPH % 20.4 % (8-40); MCH 26.5 pg (25.7-33.7); MCHC 31.5 g/dl (32.0-36.0); MEAN CELL VOLUME 84.2 fl (80-96); MEAN PLT VOLUME 9.1 fl (7.5-11.1); MONO % 13.1 % (3.8-10.2); NEUT % 60.6 % (42.8-82.8); PLATELET COUNT 253 10^3/uL (134-434); RBC 3.93 M/mm3 (3.60-5.2); RDW 16.4 % (11.6-15.6); WHITE BLOOD COUNT 6.3 K/mm3 (4.0-10.0)
[2023-10-24 09:13] LABS: POTASSIUM 4.1 mmol/L (3.5-5.1)
[2023-10-24 09:17] LABS: BLOOD UREA NITROGEN 23.5 mg/dL (7-18); CALCIUM 8.3 mg/dL (8.5-10.1); MAGNESIUM 2.1 mg/dL (1.8-2.4)
[2023-10-24 09:20] LABS: CREATININE 0.9 mg/dL (0.55-1.3); PHOSPHOROUS 3.2 mg/dL (2.5-4.9)
[2023-10-24 09:21] LABS: BILIRUBIN,TOTAL 0.8 mg/dL (0.2-1)
[2023-10-24 09:25] LABS: ALBUMIN 2.5 g/dl (3.4-5.0); TOT PROT 6.4 g/dl (6.4-8.2)
[2023-10-24] MEDS: metoPROLOL SUCCINATE 25 MG TAB.SR.24H (FP) PO SCH (09:38)
[2023-10-24] MEDS: amLODIPine BESYLATE 5 MG TABLET (FP) PO SCH (09:38)
[2023-10-24] MEDS: LOSARTAN POTASSIUM 50 MG TABLET PO SCH (09:39)
[2023-10-24] MEDS ORDERED: PATIENT'S OWN MEDICATION (NON-FORMULARY) (Amlodipine Bes/Olmesartan Med [Azor 5-20 Mg Tabl PO SCH (10:00)
[2023-10-24 23:00] VITALS: TEMP 98.1
[2023-10-25 14:28] VITALS: BP 107/74; PULSE 73
== END 2023-10-25 18:48 | disposition home or self-care (01) | DRG 884 ==
LOC: JER 17:57 → JERBED 20:45 → OBSVTOIN 23:41 → J7W 10-24 00:23
PROVIDERS: ADMIT Student in an Organized Health Care Education/Training Program; ATTEND Internal Medicine
DX: F03.918 Unspecified dementia, unspecified severity, with other behavioral disturbance (principal); G93.41 Metabolic encephalopathy; E87.20 Acidosis, unspecified; N17.9 Acute kidney failure, unspecified; R41.0 Disorientation, unspecified; I10 Essential (primary) hypertension; K21.9 Gastro-esophageal reflux disease without esophagitis
CPT/HCPCS: 36415; 70450-TC; 71045-TC-FY; 80048; 80053; 80061; 81003; 83036; 83735; 84100; 85025; 87086; 93005; 93010; 97116-GP; 97162-GP; 99285-25; G0378; J1644

== ENCOUNTER 2023-11-21 12:52 | Inpatient (IN) | payer OTHER, BC ==
[2023-11-21] MEDS ORDERED: HYDROCHLOROTHIAZIDE 25 MG TABLET (FP) ONE (14:23)
[2023-11-21] MEDS ORDERED: metoPROLOL SUCCINATE 25 MG TAB.SR.24H (FP) PO ONE (14:23)
[2023-11-21] MEDS: HYDROCHLOROTHIAZIDE 25 MG TABLET (FP) PO ONE (14:26)
[2023-11-21] MEDS: metoPROLOL SUCCINATE 25 MG TAB.SR.24H (FP) PO ONE (14:26)
[2023-11-21 14:43] LABS: PH,URINE 7.5 (5.0-8.0); URINE APPEARANCE CLEAR; URINE BILIRUBIN NEGATIVE (NEGATIVE); URINE COLOR YELLOW; URINE GLUCOSE (UA) NEGATIVE (NEGATIVE); URINE KETONE NEGATIVE (NEGATIVE); URINE LEUK ESTERASE NEGATIVE (NEGATIVE); URINE NITRITE NEGATIVE (NEGATIVE); URINE PROTEIN NEGATIVE (NEGATIVE)
[2023-11-21 14:47] LABS: BASO % 0.7 % (0-2.0); HEMATOCRIT 35.1 % (32.4-45.2); HEMOGLOBIN 11.4 GM/dL (10.7-15.3); LYMPH % 24.4 % (8-40); MCH 27.3 pg (25.7-33.7); MCHC 32.5 g/dl (32.0-36.0); MEAN PLT VOLUME 9.1 fl (7.5-11.1); MONO % 12.2 % (3.8-10.2); NEUT % 57.7 % (42.8-82.8); PLATELET COUNT 257 10^3/uL (134-434); RBC 4.17 M/mm3 (3.60-5.2); RDW 16.8 % (11.6-15.6); WHITE BLOOD COUNT 5.8 K/mm3 (4.0-10.0)
[2023-11-21 15:00] LABS: POTASSIUM 3.3 mmol/L (3.5-5.1)
[2023-11-21 15:02] LABS: CALCIUM 8.8 mg/dL (8.5-10.1)
[2023-11-21 15:03] LABS: BLOOD UREA NITROGEN 14.8 mg/dL (7-18); MAGNESIUM 1.9 mg/dL (1.8-2.4)
[2023-11-21 15:06] LABS: CREATININE 0.9 mg/dL (0.55-1.3); PHOSPHOROUS 2.4 mg/dL (2.5-4.9)
[2023-11-21 15:07] LABS: BILIRUBIN,TOTAL 0.6 mg/dL (0.2-1); TOT PROT 7.4 g/dl (6.4-8.2)
[2023-11-21] MEDS ORDERED: amLODIPine BESYLATE 5 MG TABLET (FP) ONE (16:56)
[2023-11-21] MEDS ORDERED: VALSARTAN 80 MG TABLET ONE (16:56)
[2023-11-21] MEDS: VALSARTAN 80 MG TABLET PO ONE (17:20)
[2023-11-21] MEDS: amLODIPine BESYLATE 10 MG TABLET (FP) PO ONE (17:20)
[2023-11-21 20:33] VITALS: BMI 30.1
[2023-11-22 09:05] LABS: BASO % 0.6 % (0-2.0); EOS % 5.6 % (0-4.5); HEMATOCRIT 36.3 % (32.4-45.2); HEMOGLOBIN 11.8 GM/dL (10.7-15.3); MCH 27.1 pg (25.7-33.7); MCHC 32.4 g/dl (32.0-36.0); MEAN CELL VOLUME 83.5 fl (80-96); MONO % 11.7 % (3.8-10.2); NEUT % 62.1 % (42.8-82.8); PLATELET COUNT 271 10^3/uL (134-434); RBC 4.35 M/mm3 (3.60-5.2); RDW 16.7 % (11.6-15.6); WHITE BLOOD COUNT 5.4 K/mm3 (4.0-10.0)
[2023-11-22 09:26] LABS: POTASSIUM 3.4 mmol/L (3.5-5.1)
[2023-11-22 09:28] LABS: BLOOD UREA NITROGEN 15.4 mg/dL (7-18); CALCIUM 8.6 mg/dL (8.5-10.1); MAGNESIUM 2.1 mg/dL (1.8-2.4)
[2023-11-22 09:31] LABS: CREATININE 0.9 mg/dL (0.55-1.3); PHOSPHOROUS 3.3 mg/dL (2.5-4.9)
[2023-11-22] MEDS: VALSARTAN 80 MG TABLET PO SCH (10:11)
[2023-11-22] MEDS: amLODIPine BESYLATE 5 MG TABLET (FP) PO SCH (10:11)
[2023-11-22] MEDS: ENOXAPARIN NA (PORCINE) 40 MG/0.4 ML DISP.SYRIN SQ SCH (10:11)
[2023-11-22] MEDS ORDERED: hydrALAZINE HCL 20 MG/ML VIAL IVPUSH PRN (18:18)
[2023-11-22] MEDS: POTASSIUM CHLORIDE TABS 20 MEQ TABLET.ER (FP) PO ONE (18:55)
[2023-11-23 08:28] LABS: BASO % 0.7 % (0-2.0); EOS % 4.8 % (0-4.5); HEMATOCRIT 35.7 % (32.4-45.2); HEMOGLOBIN 11.6 GM/dL (10.7-15.3); LYMPH % 23.8 % (8-40); MCH 27.2 pg (25.7-33.7); MCHC 32.5 g/dl (32.0-36.0); MEAN CELL VOLUME 83.7 fl (80-96); MEAN PLT VOLUME 9.1 fl (7.5-11.1); MONO % 12.6 % (3.8-10.2); NEUT % 58.1 % (42.8-82.8); PLATELET COUNT 239 10^3/uL (134-434); RBC 4.27 M/mm3 (3.60-5.2); RDW 16.7 % (11.6-15.6); WHITE BLOOD COUNT 5.3 K/mm3 (4.0-10.0)
[2023-11-23 08:52] LABS: POTASSIUM 3.7 mmol/L (3.5-5.1)
[2023-11-23 08:53] LABS: CALCIUM 8.7 mg/dL (8.5-10.1)
[2023-11-23 08:54] LABS: BLOOD UREA NITROGEN 19.2 mg/dL (7-18)
[2023-11-23] MEDS: amLODIPine BESYLATE 10 MG TABLET (FP) PO SCH (10:43)
[2023-11-23] MEDS: DONEPEZIL HCL 5 MG TABLET (FP) PO SCH (10:43)
[2023-11-23] MEDS: QUEtiapine FUMARATE 25 MG TABLET PO SCH (21:19)
[2023-11-24 07:59] LABS: HEMATOCRIT 39.4 % (32.4-45.2); HEMOGLOBIN 12.5 GM/dL (10.7-15.3); MCH 26.9 pg (25.7-33.7); MCHC 31.7 g/dl (32.0-36.0); MEAN CELL VOLUME 84.9 fl (80-96); MEAN PLT VOLUME 8.8 fl (7.5-11.1); PLATELET COUNT 281 10^3/uL (134-434); RBC 4.64 M/mm3 (3.60-5.2); RDW 17.1 % (11.6-15.6); WHITE BLOOD COUNT 5.5 K/mm3 (4.0-10.0)
[2023-11-24 08:26] LABS: POTASSIUM 3.8 mmol/L (3.5-5.1)
[2023-11-24 08:28] LABS: CALCIUM 9.2 mg/dL (8.5-10.1)
[2023-11-24 08:29] LABS: BLOOD UREA NITROGEN 18.1 mg/dL (7-18)
[2023-11-24 08:32] LABS: CREATININE 0.9 mg/dL (0.55-1.3)
[2023-11-24 08:34] LABS: BILIRUBIN,TOTAL 0.8 mg/dL (0.2-1); TOT PROT 7.5 g/dl (6.4-8.2)
[2023-11-27 05:15] VITALS: RESP 18
[2023-11-27 08:52] VITALS: TEMP 98.1
[2023-11-27 10:47] VITALS: BP 136/74; PULSE 88
[2023-12-01 16:10] LABS: C-ANCA <1:20 titer (Neg:<1:20)
== END 2023-11-27 16:40 | DRG 305 ==
LOC: JER 12:52 → JERBED 16:29 → J6S 20:13
PROVIDERS: ADMIT Student in an Organized Health Care Education/Training Program; ATTEND Internal Medicine
DX: I16.0 Hypertensive urgency (principal); G93.40 Encephalopathy, unspecified; F02.B2 Dementia in other diseases classified elsewhere, moderate, with psychotic disturbance; G30.9 Alzheimer's disease, unspecified; D72.821 Monocytosis (symptomatic); E87.6 Hypokalemia
CPT/HCPCS: 0241U-QW; 36415; 70450-TC; 70551-TC; 71045-TC-FY; 80048; 80053; 81003; 82533; 82607; 82746; 82962; 83516; 83520; 83735; 84100; 84439; 84443; 84484; 85025; 85027; 85651; 86038; 86140; 86160; 86225; 86235; 86256; 86682; 86780; 87086; 93005; 93010; 93306-TC; 97116-GP; 97162-GP; 99285-25

== ENCOUNTER 2024-08-27 17:07 | Inpatient (IN) | payer OTHER, BC ==
[2024-08-27] MEDS ORDERED: ACETAMINOPHEN INJECTION 100 ML ONE ×2 (18:18→19:48)
[2024-08-27 19:01] LABS: BASO % 0.8 % (0-2.0); EOS % 5.9 % (0-4.5); HEMATOCRIT 35.9 % (32.4-45.2); HEMOGLOBIN 11.4 GM/dL (10.7-15.3); LYMPH % 23.2 % (8-40); MCH 26.8 pg (25.7-33.7); MCHC 31.7 g/dl (32.0-36.0); MEAN CELL VOLUME 84.5 fl (80-96); MEAN PLT VOLUME 8.7 fl (7.5-11.1); MONO % 11.2 % (3.8-10.2); NEUT % 58.9 % (42.8-82.8); PLATELET COUNT 317 10^3/uL (134-434); RBC 4.24 M/mm3 (3.60-5.2); RDW 16.4 % (11.6-15.6); WHITE BLOOD COUNT 6.7 K/mm3 (4.0-10.0)
[2024-08-27 19:27] LABS: POTASSIUM 4.1 mmol/L (3.5-5.1)
[2024-08-27 19:34] LABS: CREATININE 0.7 mg/dL (0.55-1.3)
[2024-08-27 19:35] LABS: BILIRUBIN,TOTAL 0.5 mg/dL (0.2-1)
[2024-08-27] MEDS: amLODIPine BESYLATE 10 MG TABLET (FP) PO ONE (19:47)
[2024-08-27] MEDS: ACETAMINOPHEN 1000 MG/100 ML BAG IVPB ONE (19:47)
[2024-08-27] MEDS ORDERED: amLODIPine BESYLATE 10 MG TABLET (FP) ONE (19:48)
[2024-08-27] MEDS ORDERED: VALSARTAN 80 MG TABLET ONE (22:08)
[2024-08-27] MEDS: VALSARTAN 80 MG TABLET PO ONE (22:13)
[2024-08-27 22:20] LABS: EPI CELLS >36 /uL (0-25.1); HYALINE CASTS 2 /uL (0-3.1); URINE APPEARANCE CLOUDY; URINE BACTERIA 3254 /uL (0-1359); URINE BILIRUBIN NEGATIVE (NEGATIVE); URINE COLOR YELLOW; URINE GLUCOSE (UA) NEGATIVE (NEGATIVE); URINE KETONE NEGATIVE (NEGATIVE); URINE LEUK ESTERASE 3+ (NEGATIVE); URINE NITRITE NEGATIVE (NEGATIVE); URINE PROTEIN NEGATIVE (NEGATIVE); URINE WBC 751 /uL (0-25.8)
[2024-08-27] MEDS ORDERED: CEFTRIAXONE 1 G/50 ML PREMIX 50 ML IVPB ONE (23:25)
[2024-08-27] MEDS: CEFTRIAXONE 1 GM in DEXTROSE 5%-WATER - 100 ML IVPB ONE (23:42)
[2024-08-28 03:19] VITALS: BMI 27.0
[2024-08-28] MEDS: VALSARTAN 40 MG TABLET PO ONE (03:59)
[2024-08-28] MEDS ORDERED: amLODIPine BESYLATE 10 MG TABLET (FP) PO ONE (08:00)
[2024-08-28] MEDS: amLODIPine BESYLATE 10 MG TABLET (FP) PO SCH (09:19)
[2024-08-28] MEDS: VALSARTAN 80 MG TABLET PO SCH (09:19)
[2024-08-28] MEDS: ENOXAPARIN NA (PORCINE) 40 MG/0.4 ML DISP.SYRIN SQ SCH (09:19)
[2024-08-28 09:34] LABS: BASO % 0.7 % (0-2.0); EOS % 7.3 % (0-4.5); HEMATOCRIT 37.1 % (32.4-45.2); HEMOGLOBIN 11.7 GM/dL (10.7-15.3); LYMPH % 19.3 % (8-40); MCH 26.7 pg (25.7-33.7); MCHC 31.5 g/dl (32.0-36.0); MEAN CELL VOLUME 84.9 fl (80-96); MONO % 10.5 % (3.8-10.2); NEUT % 62.2 % (42.8-82.8); PLATELET COUNT 338 10^3/uL (134-434); RBC 4.37 M/mm3 (3.60-5.2); RDW 15.5 % (11.6-15.6); WHITE BLOOD COUNT 5.9 K/mm3 (4.0-10.0)
[2024-08-28 09:44] LABS: POTASSIUM 3.7 mmol/L (3.5-5.1)
[2024-08-28 09:52] LABS: MAGNESIUM 1.8 mg/dL (1.8-2.4)
[2024-08-28 09:54] LABS: CREATININE 0.7 mg/dL (0.55-1.3)
[2024-08-28] MEDS ORDERED: amLODIPine BESYLATE 10 MG TABLET (FP) PO SCH (10:00)
[2024-08-28] MEDS: MAGNESIUM OXIDE 400 MG TABLET (FP) PO ONE (14:07)
[2024-08-28] MEDS: QUEtiapine FUMARATE 25 MG TABLET PO SCH (21:32)
[2024-08-28] MEDS: DONEPEZIL HCL 5 MG TABLET (FP) PO SCH (21:32)
[2024-08-28] MEDS ORDERED: CEFTRIAXONE 1 G/50 ML PREMIX 50 ML IVPB SCH (22:00)
[2024-08-29 08:56] LABS: BASO % 0.8 % (0-2.0); EOS % 7.5 % (0-4.5); HEMATOCRIT 37.3 % (32.4-45.2); HEMOGLOBIN 11.9 GM/dL (10.7-15.3); MCH 26.9 pg (25.7-33.7); MCHC 31.9 g/dl (32.0-36.0); MEAN CELL VOLUME 84.2 fl (80-96); MEAN PLT VOLUME 8.8 fl (7.5-11.1); NEUT % 57.7 % (42.8-82.8); PLATELET COUNT 321 10^3/uL (134-434); RBC 4.43 M/mm3 (3.60-5.2); RDW 16.3 % (11.6-15.6); WHITE BLOOD COUNT 5.5 K/mm3 (4.0-10.0)
[2024-08-29 13:39] LABS: POTASSIUM 4.1 mmol/L (3.5-5.1)
[2024-08-29 13:41] LABS: CALCIUM 9.1 mg/dL (8.5-10.1)
[2024-08-29 13:42] LABS: BLOOD UREA NITROGEN 12.6 mg/dL (7-18)
[2024-08-29 13:45] LABS: CREATININE 0.7 mg/dL (0.55-1.3)
[2024-08-29] MEDS ORDERED: CEFTRIAXONE 1 GM in DEXTROSE 5%-WATER - 50 ML IVPB SCH (13:45)
[2024-08-30] MEDS: LIDOCAINE 5% TOPICAL PATCH TP ONE (01:22)
[2024-08-30] MEDS: ACETAMINOPHEN 325 MG TABLET (FP) PO ONE (01:22)
[2024-08-30] MEDS: DONEPEZIL HCL 10 MG TABLET (FP) PO SCH (09:48)
[2024-08-30] MEDS: QUEtiapine FUMARATE 25 MG TABLET PO SCH (09:48)
[2024-08-30] MEDS: LIDOCAINE PATCH REMOVAL MC SCH ×2 (12:13→22:04)
[2024-08-30] MEDS: LIDOCAINE 5% TOPICAL PATCH TP SCH (12:15)
[2024-08-30] MEDS: QUEtiapine FUMARATE 50 MG TABLET PO SCH (22:00)
[2024-08-31 11:18] LABS: EPI CELLS >36 /uL (0-25.1); HYALINE CASTS 1 /uL (0-3.1); PH,URINE 5.5 (5.0-8.0); URINE APPEARANCE CLEAR; URINE BACTERIA 28 /uL (0-1359); URINE BILIRUBIN NEGATIVE (NEGATIVE); URINE COLOR YELLOW; URINE GLUCOSE (UA) NEGATIVE (NEGATIVE); URINE KETONE NEGATIVE (NEGATIVE); URINE LEUK ESTERASE TRACE (NEGATIVE); URINE NITRITE NEGATIVE (NEGATIVE); URINE PROTEIN NEGATIVE (NEGATIVE); URINE RBC 11 /uL (0-23.9); URINE UROBILINOGEN 0.2 mg/dL (0.2-1.0)
[2024-08-31 11:35] LABS: YEAST NONE SEEN (NEGATIVE)
[2024-09-01 09:38] LABS: BASO % 0.9 % (0-2.0); EOS % 8.7 % (0-4.5); HEMATOCRIT 39.2 % (32.4-45.2); HEMOGLOBIN 12.6 GM/dL (10.7-15.3); LYMPH % 21.8 % (8-40); MCH 27.1 pg (25.7-33.7); MCHC 32.2 g/dl (32.0-36.0); MEAN CELL VOLUME 84.1 fl (80-96); MEAN PLT VOLUME 8.6 fl (7.5-11.1); MONO % 10.1 % (3.8-10.2); NEUT % 58.5 % (42.8-82.8); PLATELET COUNT 310 10^3/uL (134-434); RBC 4.66 M/mm3 (3.60-5.2); WHITE BLOOD COUNT 6.1 K/mm3 (4.0-10.0)
[2024-09-01 10:09] LABS: POTASSIUM 4.4 mmol/L (3.5-5.1)
[2024-09-01 10:16] LABS: BLOOD UREA NITROGEN 22.9 mg/dL (7-18); CALCIUM 9.5 mg/dL (8.5-10.1)
[2024-09-01 10:19] LABS: BILIRUBIN,TOTAL 1.1 mg/dL (0.2-1); TOT PROT 7.2 g/dl (6.4-8.2)
[2024-09-01 10:20] LABS: CREATININE 0.9 mg/dL (0.55-1.3)
[2024-09-01] MEDS: LOPERAMIDE HCL 2 MG CAPSULE PO ONE (14:45)
[2024-09-02 09:47] LABS: BASO % 0.9 % (0-2.0); EOS % 9.6 % (0-4.5); HEMATOCRIT 39.9 % (32.4-45.2); HEMOGLOBIN 12.9 GM/dL (10.7-15.3); LYMPH % 27.8 % (8-40); MCH 27.5 pg (25.7-33.7); MCHC 32.3 g/dl (32.0-36.0); MEAN CELL VOLUME 85.3 fl (80-96); NEUT % 50.7 % (42.8-82.8); PLATELET COUNT 318 10^3/uL (134-434); RBC 4.68 M/mm3 (3.60-5.2); WHITE BLOOD COUNT 5.3 K/mm3 (4.0-10.0)
[2024-09-02 10:13] LABS: POTASSIUM 4.4 mmol/L (3.5-5.1)
[2024-09-02 10:17] LABS: BLOOD UREA NITROGEN 22.2 mg/dL (7-18); CALCIUM 9.2 mg/dL (8.5-10.1)
[2024-09-02 10:21] LABS: CREATININE 0.9 mg/dL (0.55-1.3)
[2024-09-02 10:22] LABS: BILIRUBIN,TOTAL 1.3 mg/dL (0.2-1); TOT PROT 7.5 g/dl (6.4-8.2)
[2024-09-02 14:23] VITALS: BP 136/66; PULSE 79; RESP 20; TEMP 98
== END 2024-09-02 14:56 | DRG 690 ==
LOC: JER 17:07 → JERBED 22:43 → J8W 08-28 02:26
PROVIDERS: ADMIT Internal Medicine; ATTEND Nurse Practitioner Family
DX: N39.0 Urinary tract infection, site not specified (principal); M25.511 Pain in right shoulder; I10 Essential (primary) hypertension; G30.9 Alzheimer's disease, unspecified; F02.80 Dementia in other diseases classified elsewhere, unspecified severity, without behavioral disturbance, psychotic disturbance, mood disturbance, and anxiety; M48.07 Spinal stenosis, lumbosacral region; W18.30XA Fall on same level, unspecified, initial encounter; Y92.038 Other place in apartment as the place of occurrence of the external cause; Y99.9 Unspecified external cause status
CPT/HCPCS: 0241U-QW; 36415; 70450-TC; 71045-TC-FY; 72125-TC; 72131-TC; 72170-TC-FY; 73030-TC-RT-FY; 80048; 80053; 81003; 83735; 84100; 84484; 85025; 87040; 87086; 93005; 93010; 97116-GP; 97161-GP; 99285-25; J0131